=== PATIENT | male | born 1950 | race Caucasian/White ===

== ENCOUNTER 2017-10-21 12:01 | Inpatient (IN) | payer OTHER ==
[~2017-10-21] VITALS: Ht 185.4 cm; Wt 88.3 kg
--- NOTE | 2017-10-21 12:18 | ED MVC/FALL/TRAUMA COMPLAINT ---
History of Present Illness General Chief Complaint: Fall Stated Complaint: BIBA FALL HIP PAIN Source: patient Exam Limitations: no limitations Vital Signs & Intake/Output Vital Signs & Intake/Output Vital Signs Date Time Temp Pulse Resp B/P B/P Pulse O2 O2 Flow FiO2 Mean Ox Delivery Rate 10/24 0832 101 96/68 10/24 0707 99.7 101 18 96/68 93 Room Air 10/23 2132 98.1 111 18 100/60 93 10/23 1534 98.8 97 20 102/56 93 Room Air ED Intake and Output 10/24 0000 10/23 1200 Intake Total 240 800 Output Total 1275 Balance 240 -475 Intake, IV 800 Intake, Oral 240 Output, Urine 1275 Patient 90.293 kg Weight Weight Bed scale Measurement Method Allergies Coded Allergies: No Known Allergies (10/21/17) Reconcile Medications Ibuprofen 200 MG CAPSULE 2-3 CAP PO PRN PAIN/INFLAMMATION (Reported) Lisinopril 10 MG TABLET 1 TAB PO DAILY BP (Reported) Simvastatin (Simvastatin*) 40 MG TABLET 1 TAB PO QAM CHOLESTEROL (Reported) Tramadol HCl 50 MG TABLET 1 TAB PO TID PRN PAIN (Reported) Triage Note: RECEIVED 66 YO MALE BIBA S/P FALL ON LEFT HIP. PT C/O LEFT HIP AREA PAIN RADIATING TO PELVIS AND LOWER BACK. PT UNABLE TO WEIGHT BEAR. NO EXTERNAL ROTATION OR SHORTENING OF LEG NOTED. OCCURED ONE HOUR PHYSICIAN ASSISTANT. NO C/O LIGHTHEADEDNESS OR DIZZINESS PRIOR TO FALL. SLIP AND FALL. Triage Nurses Notes Reviewed? yes HPI: 66M PMH HTN, HLD, chronic back pain with multiple surgeries, presents with slip and fall, landing on his left hip. Did not hit his head, shoulder, or lose consciousness. Was not able to walk afterward or bear weight on his left leg. No symptoms prior, fall was purely mechanical. He complains of 10/10 left hip pain radiating down his lateral left leg. He denies back pain and is otherwise well. Past History Travel History Traveled to [place] past 21 day No Medical History Any Pertinent Medical History? see below for history Neurological: NONE EENT: NONE Cardiovascular: hypertension, hyperlipidemia Respiratory: NONE Gastrointestinal: NONE Hepatic: NONE Renal: NONE Musculoskeletal: NONE Psychiatric: NONE Endocrine: NONE Blood Disorders: NONE Cancer(s): NONE Surgical History Surgical History: laminectomy Psychosocial History What is your primary language [place] Tobacco Use: Never used Family History Hx Contributory? No Review of Systems Review of Systems Constitutional: Reports: no symptoms. Eyes: Reports: no symptoms. Ears, Nose, Throat, Mouth: Reports: no symptoms. Respiratory: Reports: no symptoms. Cardiovascular: Reports: no symptoms. Gastrointestinal/Abdominal: Reports: no symptoms. Genitourinary: Reports: no symptoms. Musculoskeletal: Reports: see HPI. Skin: Reports: no symptoms. Neurological/Psychological: Reports: no symptoms. All Other Systems: Reviewed and Negative Physical Exam Physical Exam General Appearance: well developed/nourished, mild distress Head: atraumatic, normal appearance Eyes: Bilateral: normal appearance. Ears, Nose, Throat, Mouth: hearing grossly normal, moist mucous membrane Neck: normal inspection, full range of motion Respiratory: normal breath sounds, chest non-tender, no respiratory distress Cardiovascular: regular rate/rhythm Gastrointestinal: soft, non-tender Back: normal inspection, normal range of motion, no vertebral tenderness Extremities: left hip and femur tenderness, unable to move leg due to pain, pulses and sensation intact Neurologic/Psych: awake, alert, oriented x 3, normal mood/affect Skin: intact, normal color, warm/dry Core Measures ACS in differential dx? No CVA/TIA Diagnosis No Sepsis Present: No Sepsis Focused Exam Completed? No Progress Differential Diagnosis: aoritic dissection, abd injury, C/T/L spine injury, ext injury, ICH, pelvis injury, pnemothorax, spinal cord injury Plan of Care: Orders Procedure Date/time Status CBC WITHOUT DIFFERENTIAL 10/24 0600 Complete Current Medications Sig/Keeley Start time Last Medication Dose Stop Time Status Admin Senna 187 MG AT BEDTIME 10/24 2199 AC (Senokot) Docusate Sodium 100 MG DAILY 10/24 1000 AC 10/24 (Colace) 1103 Apixaban 2.5 MG BID 10/23 2199 AC 10/24 (Eliquis) 0831 Morphine Sulfate 2 MG Q2-3 HRS NEEDED.. 10/22 (MORPHINE SULFATE) 1424 Oxycodone/ 2 TAB Q4P PRN 10/22 Acetaminophen 1103 (Percocet) Oxycodone/ 1 TAB Q4P PRN 10/22 Acetaminophen 2351 (Percocet) Atorvastatin Calcium 20 MG 1700 10/22 1700 AC 10/23 (Lipitor) 1622 Lisinopril 10 MG DAILY 10/22 1000 AC 10/23 (Prinivil) 0940 Acetaminophen 650 MG Q4P PRN 10/21 2230 AC 10/22 (Tylenol) 0832 Laboratory Tests 10/24/17 0712: CBC w Diff NO MAN DIFF REQ, RBC 3.27 L, MCV 95.3 H, MCH 32.1 H, MCHC 33.7, RDW 13.5, MPV 8.7, Gran % 73.4, Lymphocytes % 11.9 L, Monocytes % 13.5 H, Eosinophils % 0.9, Basophils % 0.3, Absolute Granulocytes 8.0 H, Absolute Lymphocytes 1.3, Absolute Monocytes 1.5 H, Absolute Eosinophils 0.1, Absolute Basophils 0 Diagnostic Imaging: Viewed by Me: CT Scan. Discussed w/RAD: CT Scan. Radiology Impression: PATIENT: MAYLIN TOBIAS PRESENT AGE: 66 PATIENT ACCOUNT NO: [id number] : 48 LOCATION: [facility] ORDERING PHYSICIAN: Trina Avilez MD SERVICE DATE: 10/21/17 EXAM TYPE : CAT - CT PELVIS WO IV CONTRAST EXAMINATION: CT PELVIS WITHOUT CONTRAST CLINICAL INFORMATION: Fall onto left hip with pain. Unable to bear weight. Rule out hip, pelvis, femur fracture. COMPARISON: None TECHNIQUE: Helical scanning was performed with submillimeter collimation through the pelvis. Sagittal and coronal multiplanar 2-D reconstructions were obtained. DLP: 708.23 mGy-cm FINDINGS: OSSEOUS STRUCTURES: There is an acute left femoral neck fracture with mild overriding of fracture fragments, slight superior subluxation of the distal fracture fragment and varus deformity of the hip. The left femoral head remains located within the acetabulum. No acetabular fracture is seen. Mild associated left hip joint effusion or hemorrhage and synovial thickening is seen. The bony pelvis and the right hip are intact. There are bilateral pars defects seen at L5 with minimal grade 1 anterolistheses of L5 on S1 and posterior unroofing of the disc. Associated degenerative facet arthropathy is noted at the lumbosacral junction. There is severe degenerative disc disease at L5-S1 as well as at L3- L4. Posterior subluxation of L3 on L4 is seen. PELVIS: The bladder is well distended and intact and unremarkable. Prostate gland and seminal vesicles are unremarkable. Included small and large bowel loops are decompressed and within normal limits except for a few scattered sigmoid colonic diverticula. No evidence of acute diverticulitis. Appendix and terminal ileum are unremarkable. There is a tiny fat-containing umbilical hernia. There is a tiny fat-containing left inguinal hernia. Mild atherosclerotic calcification of the aortoiliac vessels is seen. No significant pelvic or inguinal adenopathy is noted. IMPRESSION: 1. Mildly displaced left femoral neck fracture with varus angulation of the hip and associated small hemarthrosis. 2. Bony pelvis otherwise intact. 3. Severe degenerative disc disease at L3-L4 and L5-S1 with associated moderate facet arthropathy throughout the lower lumbar spine. 4. 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 DICTATED BY: Lian NINO,Leela Qiu DATE/TIME DICTATED:10/21/171441 BRAND INSPECTOR:TUAN DATE/TIME TRANSCRIBED:10/21/171441 Departure Departure Disposition: STILL A PATIENT Condition: Stable Clinical Impression Primary Impression: Closed left hip fracture Secondary Impressions: Fall Departure Forms: Customer Survey General Discharge Information Admission Note Spoke With: Amirah NINO,Raj Documentation of Exam: Documentation of any treatments & extenuating circumstances including Concerns Regarding Discharge (functional status, medication knowledge or non-compliance, living conditions, etc.) that warrant an admission rather than observation: FALL WITH LEFT HIP FRACTURE, UNABLE TO BEAR WEIGHT, WILL REQUIRE SURGICAL REPAIR, ADMIT TO INPATIENT SERVICE.
[2017-10-21] MEDS ORDERED: LISINOPRIL10 M1 PO (14:11)
[2017-10-21] MEDS ORDERED: SIMVASTATIN40 M1 PO (14:12)
[2017-10-21] MEDS ORDERED: TRAMADOL HCL50 M1 PO (14:12)
[2017-10-21] MEDS ORDERED: IBUPROFEN200 M3 PO (14:13)
[2017-10-21 14:57] LABS: ABSOLUTE BASOPHIL COUNT 0 /CUMM (0.0-0.2); ABSOLUTE EOSINOPHIL COUNT 0.1 /CUMM (0.0-0.7); ABSOLUTE LYMPH COUNT 0.9 /CUMM (1.2-3.4); ABSOLUTE MONOCYTE COUNT 0.5 /CUMM (0.10-0.60); BASOPHIL % 0 % (0.0-2.0); EOSINOPHIL % 0.9 % (0-5); GRANULOCYTE % 83.9 % (42.2-75.2); HEMATOCRIT 40.6 % (42-52); MEAN CORPUSCULAR HGB CONC 32.3 G/DL (33.0-37.0); MEAN PLATELET VOLUME 8.6 FL (7.4-10.4); PLATELET COUNT 232 /CUMM (130-400); RBC DISTRIBUTION WIDTH 13.4 % (11.5-14.5); RED BLOOD CELL CT 4.23 /CUMM (4.70-6.10); WHITE BLOOD CELL COUNT 9.6 /CUMM (4.8-10.8)
--- NOTE | 2017-10-21 14:57 | CT SCAN REPORT ---
EXAMINATION: CT PELVIS WITHOUT CONTRAST CLINICAL INFORMATION: Fall onto left hip with pain. Unable to bear weight. Rule out hip, pelvis, femur fracture. COMPARISON: None TECHNIQUE: Helical scanning was performed with submillimeter collimation through the pelvis. Sagittal and coronal multiplanar 2-D reconstructions were obtained. DLP: 708.23 mGy-cm FINDINGS: OSSEOUS STRUCTURES: There is an acute left femoral neck fracture with mild overriding of fracture fragments, slight superior subluxation of the distal fracture fragment and varus deformity of the hip. The left femoral head remains located within the acetabulum. No acetabular fracture is seen. Mild associated left hip joint effusion or hemorrhage and synovial thickening is seen. The bony pelvis and the right hip are intact. There are bilateral pars defects seen at L5 with minimal grade 1 anterolistheses of L5 on S1 and posterior unroofing of the disc. Associated degenerative facet arthropathy is noted at the lumbosacral junction. There is severe degenerative disc disease at L5-S1 as well as at L3-L4. Posterior subluxation of L3 on L4 is seen. PELVIS: The bladder is well distended and intact and unremarkable. Prostate gland and seminal vesicles are unremarkable. Included small and large bowel loops are decompressed and within normal limits except for a few scattered sigmoid colonic diverticula. No evidence of acute diverticulitis. Appendix and terminal ileum are unremarkable. There is a tiny fat-containing umbilical hernia. There is a tiny fat-containing left inguinal hernia. Mild atherosclerotic calcification of the aortoiliac vessels is seen. No significant pelvic or inguinal adenopathy is noted. IMPRESSION: 1. Mildly displaced left femoral neck fracture with varus angulation of the hip and associated small hemarthrosis. 2. Bony pelvis otherwise intact. 3. Severe degenerative disc disease at L3-L4 and L5-S1 with associated moderate facet arthropathy throughout the lower lumbar spine. 4. 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
[2017-10-21 15:03] LABS: PT 11.8 SEC (9.4-12.5); PTT 23 SEC (25-37)
--- NOTE | 2017-10-21 15:42 | Cons- Orthopedic ---
General Information and HPI Consulting Request Date of Consult: 10/21/17 Requested By: Hospitalist Reason for Consult: Left hip fracture Source of Information: patient History of Present Illness: Patient is a 66-year-old male with past medical history significant for hypertension, hyperlipidemia, and chronic back pain with multiple surgeries, who was brought in by ambulance to the [place] ED after a slip and fall on sidewalk, which resulted in him landing on his left hip. He recalls the event and denies any precipitating symptoms. He thinks that there were likely slippery patches on the sidewalk. Patient's only complaint is left hip pain radiating down his lateral left leg and there were no other injuries. X-rays in the ED revealed mildly displaced left femoral neck fracture. Orthopedic consultation is being requested for recommendations and intervention. Dr. Keita is the consulting surgeon. Allergies/Medications Allergies: Coded Allergies: No Known Allergies (10/21/17) Home Med List: Ibuprofen 200 MG CAPSULE 2-3 CAP PO PRN PAIN/INFLAMMATION (Reported) Lisinopril 10 MG TABLET 1 TAB PO DAILY BP (Reported) Simvastatin (Simvastatin*) 40 MG TABLET 1 TAB PO QAM CHOLESTEROL (Reported) Tramadol HCl 50 MG TABLET 1 TAB PO TID PRN PAIN (Reported) Past History Medical History Neurological: NONE EENT: NONE Cardiovascular: hypertension, hyperlipidemia Respiratory: NONE Gastrointestinal: NONE Hepatic: NONE Renal: NONE Musculoskeletal: NONE Psychiatric: NONE Endocrine: NONE Blood Disorders: NONE Cancer(s): NONE Surgical History Pertinent Surgical History: laminectomy Psychosocial History Where Do You Live? Home Who Do You Live With? spouse Functional Ability Ambulation: independent Exam & Diagnostic Data Vital Signs and I&O Vital Signs Date Time Temp Pulse Resp B/P B/P Pulse O2 O2 Flow FiO2 Mean Ox Delivery Rate 10/21 1533 98.7 78 18 117/74 98 Room Air 10/21 1208 96.8 72 18 110/70 96 Room Air Intake & Output 10/21 1600 10/21 0800 10/21 0000 10/20 1600 10/20 0800 10/20 0000 Intake Total 120 Output Total Balance 120 Intake, IV 0 Intake, Oral 120 Patient 195 lb Weight Weight Estimated Measurement Method Physical Exam: Gen.: Patient is awake and alert. No acute distress. Cardiac: Regular Pulmonary: Lungs are clear bilaterally. Extremities: The left lower extremity is slightly externally rotated. No other obvious deformities are appreciated. There is tenderness over the greater trochanter. Lower extremity sensation is intact bilaterally. Last 24 Hours of Labs: Laboratory Tests 10/21 1442 Chemistry Sodium (137 - 145 mmol/L) 137 Potassium (3.5 - 5.1 mmol/L) 4.6 Chloride (98 - 107 mmol/L) 102 Carbon Dioxide (22 - 30 mmol/L) 24 Anion Gap (5 - 16) 12 BUN (9 - 20 mg/dL) 19 Creatinine (0.7 - 1.2 mg/dL) 1.0 Estimated GFR (>60 ml/min) > 60 BUN/Creatinine Ratio (7 - 25 %) 19.0 Glucose (65 - 99 mg/dL) 110 H Calcium (8.4 - 10.2 mg/dL) 9.9 Total Bilirubin (0.2 - 1.3 mg/dL) 0.4 AST (17 - 59 U/L) 27 ALT (21 - 72 U/L) 38 Alkaline Phosphatase (< 127 U/L) 51 Total Protein (6.3 - 8.2 g/dL) 7.2 Albumin (3.5 - 5.0 g/dL) 4.2 Globulin (1.9 - 4.2 gm/dL) 3.0 Albumin/Globulin Ratio (1.1 - 2.2 %) 1.4 Coagulation PT (9.4 - 12.5 SEC) 11.8 INR (0.90 - 1.17) 1.08 APTT (25 - 37 SEC) 23 L Hematology CBC w Diff MAN DIFF ORDERED WBC (4.8 - 10.8 /CUMM) 9.6 RBC (4.70 - 6.10 /CUMM) 4.23 L Hgb (14.0 - 18.0 G/DL) 13.1 L Hct (42 - 52 %) 40.6 L MCV (80.0 - 94.0 FL) 96.0 H MCH (27.0 - 31.0 PG) 31.0 MCHC (33.0 - 37.0 G/DL) 32.3 L RDW (11.5 - 14.5 %) 13.4 Plt Count (130 - 400 /CUMM) 232 MPV (7.4 - 10.4 FL) 8.6 Gran % (42.2 - 75.2 %) 83.9 H Lymphocytes % (20.5 - 51.1 %) 9.8 L Monocytes % (1.7 - 9.3 %) 5.4 Eosinophils % (0 - 5 %) 0.9 Basophils % (0.0 - 2.0 %) 0 Absolute Granulocytes (1.4 - 6.5 /CUMM) 8.0 H Absolute Lymphocytes (1.2 - 3.4 /CUMM) 0.9 L Absolute Monocytes (0.10 - 0.60 /CUMM) 0.5 Absolute Eosinophils (0.0 - 0.7 /CUMM) 0.1 Absolute Basophils (0.0 - 0.2 /CUMM) 0 Platelet Estimate (ADEQUATE) VERIFIED BY SMEAR Normocytic RBCs VERIFIED Normochromic RBCs VERIFIED Imaging Results: Left hip x-ray revealed: there is a transverse fracture of the left femoral neck. Superior subluxation of the distal fracture fragment is seen, and mild varus angulation is noted. The left femoral head remains located within the acetabulum. Assessment/Plan Assessment/Plan Patient is a 66-year-old male with history of hypertension and hyperlipidemia, status post multiple back surgeries, who now sustained a left femoral neck fracture after a mechanical fall. -Plan is to admit the patient to the hospitalist service for medical clearance. -He will require surgical intervention via hemiarthroplasty versus total hip arthroplasty. -He can have a regular diet today and should be kept nothing by mouth after midnight for anticipated surgery tomorrow afternoon. -Please check EKG and type and screen. -Plan is for surgery tomorrow afternoon. Please notify the surgical team if clearance is not anticipated by that time. Consult Acknowledgment - Thank you for your consult request.
--- NOTE | 2017-10-21 16:23 | History & Physical ---
Michael Santos MD 10/21/17 1622: General Information and HPI MD Statement: I have seen and personally examined MAYLIN TOBIAS and documented this H& P. The patient is a 66 year old M who presented with a patient stated chief complaint of [s/p mechanical fall with L femur fx]. Source of Information: patient Exam Limitations: no limitations History of Present Illness: Patient is a 66-year-old male with a PMH of HTN, HLD, spinal stenosis with chronic back pain, alcoholism who presented to the ED after a mechanical fall L hip pain. Patient was walking outside when he slipped on ice and fell to his left knee. He reported 10/10 left hip pain. Afterwards he could not bear weight on the left leg. He had no associated chest pain, shortness of breath, dizziness, lightheadedness, loss of consciousness, numbness or tingling of the left leg. Allergies/Medications Allergies: Coded Allergies: No Known Allergies (10/21/17) Home Med list Ibuprofen 200 MG CAPSULE 2-3 CAP PO PRN PAIN/INFLAMMATION (Reported) Lisinopril 10 MG TABLET 1 TAB PO DAILY BP (Reported) Simvastatin (Simvastatin*) 40 MG TABLET 1 TAB PO QAM CHOLESTEROL (Reported) Tramadol HCl 50 MG TABLET 1 TAB PO TID PRN PAIN (Reported) Past History Travel History Traveled to [place] past 21 day No Medical History Neurological: NONE EENT: NONE Cardiovascular: hypertension, hyperlipidemia Respiratory: NONE Gastrointestinal: NONE Hepatic: NONE Renal: NONE Musculoskeletal: NONE Psychiatric: NONE Endocrine: NONE Blood Disorders: NONE Cancer(s): NONE Surgical History Surgical History: laminectomy Past Family/Social History Family History Relations & Conditions if any Relation not specified for: *No pertinent family history Psychosocial History Where do you live? Home Who Do You Live With? spouse Services at Home: None Primary Language: Wolof Smoking Status: Never Smoked ETOH Use: alcholic in AA, stopped drinking over 60 days ago Illicit Drug Use: denies illicit drug use Review of Systems Review of Systems Constitutional: Denies: chills, fever, weakness. EENTM: Denies: blurred vision, double vision, visual changes. Cardiovascular: Denies: chest pain, palpitations, syncope. Respiratory: Denies: cough, short of breath. GI: Reports: no symptoms. Genitourinary: Reports: no symptoms. Musculoskeletal: Reports: see HPI, joint pain. Skin: Reports: no symptoms. Neurological/Psychological: Denies: numbness, tingling. Exam & Diagnostic Data Last 24 Hrs of Vital Signs/I&O Vital Signs Date Time Temp Pulse Resp B/P B/P Pulse O2 O2 Flow FiO2 Mean Ox Delivery Rate 10/21 2158 98.4 102 19 122/76 92 Room Air 10/21 1822 99.1 95 20 140/82 95 Room Air 10/21 1736 98.4 89 18 128/76 98 Room Air 10/21 1610 Room Air 10/21 1533 98.7 78 18 117/74 98 Room Air 10/21 1208 96.8 72 18 110/70 96 Room Air Intake & Output 10/21 1600 10/21 0800 10/21 0000 Intake Total 120 Output Total Balance 120 Intake, IV 0 Intake, Oral 120 Patient 195 lb Weight Weight Estimated Measurement Method Physical Exam General Appearance Alert, Oriented X3, Cooperative, Mild Distress Skin Temp/Moisture Exam: Warm/Dry Sepsis Skin Exam (color): Normal for Ethnicity HEENT Atraumatic Cardiovascular Regular Rate, Normal S1, Normal S2 Lungs Clear to Auscultation, Normal Air Movement Abdomen Normal Bowel Sounds, Soft, No Tenderness Neurological Normal Speech, Normal Tone, Sensation Intact, Cranial Nerves 3-12 NL Extremities No Clubbing, No Cyanosis, No Edema, L leg externally rotated, pulses normal, sensation intact, pain with active and passive ROM Last 24 Hrs of Labs/[place]: Laboratory Tests 10/21/17 1442: Anion Gap 12, Estimated GFR > 60, BUN/Creatinine Ratio 19.0, Glucose 110 H, Calcium 9.9, Total Bilirubin 0.4, AST 27, ALT 38, Alkaline Phosphatase 51, Total Protein 7.2, Albumin 4.2, Globulin 3.0, Albumin/Globulin Ratio 1.4, PT 11.8, INR 1.08, APTT 23 L, CBC w Diff MAN DIFF ORDERED, RBC 4.23 L, MCV 96.0 H, MCH 31.0, MCHC 32.3 L, RDW 13.4, MPV 8.6, Gran % 83.9 H, Lymphocytes % 9.8 L, Monocytes % 5.4, Eosinophils % 0.9, Basophils % 0, Absolute Granulocytes 8.0 H, Absolute Lymphocytes 0.9 L, Absolute Monocytes 0.5, Absolute Eosinophils 0.1, Absolute Basophils 0, Platelet Estimate VERIFIED BY SMEAR, Normocytic RBCs VERIFIED, Normochromic RBCs VERIFIED Diagnostic Data EKG Results sinus tachycardia, HR 115, QTc 425, normal axis Other Results Pelvis CT 1. Mildly displaced left femoral neck fracture with varus angulation of the hip and associated small hemarthrosis. 2. Bony pelvis otherwise intact. 3. Severe degenerative disc disease at L3-L4 and L5-S1 with associated moderate facet arthropathy throughout the lower lumbar spine. 4. 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 Hip XR Left femoral neck fracture. Assessment/Plan Assessment: Patient is a 66-year-old male with a PMH of HTN, HLD, spinal stenosis with chronic back pain, alcoholism who presented to the ED after a mechanical fall L hip pain. Associated symptoms suggestive of syncope. Patient found to have left femoral neck fracture. Problem list #Closed left hip fracture #Chronic medical problems including HTN, HLD, alcoholism(in recovery) Plan -Admit to general medicine floor -Nothing by mouth at midnight for this orthopedic surgery -Adequate pain control -RCRI 0 -Continue home medications Diet: Heart healthy, nothing by mouth at midnight DVT prophylaxis: SC heparin, ALPS CODE STATUS: Full Code As Ranked By This Provider Problem List: 1. Fall 2. Closed left hip fracture Core Measures/Misc (04/30) Acute Coronary Syndrome ACS Diagnosis: No Congestive Heart Failure Congestive Heart Failure Diagnosis No Cerebrovascular Accident CVA/TIA Diagnosis: No VTE (View Protocol) VTE Risk Factors Immobility No Mechanical VTE Prophylaxis d/t N/A MechProphylax Ordered No VTE Pharm Prophylaxis d/t NA PharmProphylax ordered Sepsis (View protocol) Sepsis Present: No Raj Macario 10/21/17 1627: Attending MD Review Statement Attending Statement Attending MD Statement: examined this patient, discuss w/resident/PA/CONTROLLED AREA CHECKER, agreed w/resident/PA/CONTROLLED AREA CHECKER, discussed with family, reviewed EMR data (avail), discussed with nursing, discussed with case mgmt, reviewed images, amended to note Attending Assessment/Plan: 66 o/m with pmh of hypertension of lisinopril and statin came with mechanical fall, no LOC, no chest pain, no dizziness, no fever. Patient suffered left hip fracture. Patient denies chest pain and can easily walk without dyspnea. Patient is low risk for surgery. Orthopedics consulted which recommend repair. Plan for OR in AM, NPo past MN. Patient is medically stable for the procedure and can be taken for surgery now. gi/dvt prophyalxis full code. Inez Vanegas MD 10/22/17 0007: Resident Review Statement Resident Statement: examined this patient, discussed with help desk intern, agreed with help desk intern Other Findings: Patient is a 66-year-old male with a PMH of HTN, HLD, spinal stenosis with chronic back pain, and alcoholism who presented to the ED after a mechanical fall resulting in left hip pain and inability to bear weight on the Left leg. He is currently attending AA meetings, his last drink was 60 days ago and he was had multiple detoxes in the past but no seizures, DTs or ICU admissions for alcohol related issues. Assessment 1. Left hip fracture 2. HTN, HLD 3. Chronic Alcholism in treatment 4. Chronic back pain Plan Admit to general medicine floor Orthopedic consult Keep nothing by mouth at midnight for possible surgery in a.m. Adequate pain control CIWA monitoring Resume his important home medication Subcutaneous heparin for DVT prophylaxis Heart healthy diet Follow attending recommendations Full code
--- NOTE | 2017-10-21 16:47 | RADIOLOGY REPORT ---
EXAMINATION: XR HIP, LEFT CLINICAL INFORMATION: Had hip fracture confirmed by CT. Plain films needed. COMPARISON: CT scan of the pelvis dated 10/21/2017. TECHNIQUE: Two views of the left hip performed on 3 images. FINDINGS: Crosstable lateral views are essentially nondiagnostic in region of the known fracture. On the frontal view, as seen on the CT scan, there is a transverse fracture of the left femoral neck. Superior subluxation of the distal fracture fragment is seen, and mild varus angulation is noted. The left femoral head remains located within the acetabulum. Included portions of the bony pelvis are otherwise unremarkable. IMPRESSION: Left femoral neck fracture.
[2017-10-21 18:22] VITALS: BP 140/82
[2017-10-21 21:58] VITALS: BP 122/76
[2017-10-22 06:55] VITALS: BP 122/74
--- NOTE | 2017-10-22 08:20 | PN- Housestaff ---
Tom NINO,Michael 10/22/17818: Subjective Follow-up For: mechanical fall with L femur fx Subjective: Patient seen and examined bedside. He is resting comfortably. No acute events overnight. He states that his pain is relatively well controlled. He currently has 5/10 left hip pain, exacerbated with motion. He denies any nausea, vomiting , fever, chills, chest pain, numbness or tingling of the left leg. Review of Systems Constitutional: Reports: no symptoms. EENTM: Reports: no symptoms. Cardiovascular: Reports: no symptoms. Respiratory: Reports: no symptoms. Gastrointestinal: Reports: no symptoms. Genitourinary: Reports: no symptoms. Musculoskeletal: Reports: see HPI, joint pain. Skin: Reports: no symptoms. Objective Last 24 Hrs of Vital Signs/I&O Vital Signs Date Time Temp Pulse Resp B/P B/P Pulse O2 O2 Flow FiO2 Mean Ox Delivery Rate 10/22 0655 98.6 96 20 122/74 93 10/21 2158 98.4 102 19 122/76 92 Room Air 10/21 1822 99.1 95 20 140/82 95 Room Air 10/21 1736 98.4 89 18 128/76 98 Room Air 10/21 1610 Room Air 10/21 1533 98.7 78 18 117/74 98 Room Air 10/21 1208 96.8 72 18 110/70 96 Room Air Intake & Output 10/22 1600 10/22 0800 10/22 0000 Intake Total 700 480 Output Total 250 600 Balance 450 -120 Intake, IV 700 Intake, Oral 0 480 Output, Urine 250 600 Patient 201 lb 196 lb Weight Weight Bed scale Reported by Patient Measurement Method Physical Exam General Appearance: Alert, Oriented X3, Cooperative, No Acute Distress Skin Temp/Moisture Exam: Warm/Dry Cardiovascular: Regular Rate, Normal S1, Normal S2 Lungs: Clear to Auscultation, Normal Air Movement Abdomen: Normal Bowel Sounds, Soft, Mild TTP of the LLQ Neurological: Normal Speech, Normal Tone, Sensation Intact Extremities: Pain with active and passive ROM of the LLE, no overlying skin changes, sensation intact and good distal pulses Current Medications: Current Medications Sig/Keeley Start time Last Medication Dose Route Stop Time Status Admin Acetaminophen 650 MG Q4P PRN 10/21 2230 AC PO Atorvastatin Calcium 20 MG 1700 10/22 1700 AC PO Heparin Sodium 5,000 UNIT Q8 10/21 2312 AC (Porcine) SC Hydromorphone HCl 0.6 MG Q4P PRN 10/21 1745 AC 10/21 IV 2006 Influenza Virus 0.5 ML ONCE ONE 10/21 1900 DC Vaccine IM 10/21 190 Ketorolac 30 MG .STK-MED ONE 10/21 2237 DC Tromethamine IM 10/21 2237 Ketorolac 15 MG Q6-PRN PRN 10/21 2229 AC 10/21 Tromethamine IV 223 Lisinopril 10 MG DAILY 10/22 1000 AC PO Morphine Sulfate 2 MG Q4P PRN 10/21 2230 AC 10/22 IV 0422 Morphine Sulfate 0 .STK-MED ONE 10/21 1749 DC .ROUTE Morphine Sulfate 4 MG ONCE ONE 10/21 1745 DC 10/21 IV 10/21 1746 1816 Morphine Sulfate 0 .STK-MED ONE 10/21 1610 DC .ROUTE Morphine Sulfate 4 MG ONCE ONE 10/21 1545 DC 10/21 IV 10/21 1546 1609 Morphine Sulfate 0 .STK-MED ONE 10/21 1528 DC .ROUTE Morphine Sulfate 4 MG ONCE ONE 10/21 1345 DC 10/21 IV 10/21 1346 1526 Oxycodone/ 0 .STK-MED ONE 10/21 1255 DC Acetaminophen PO Oxycodone/ 1 TAB ONCE ONE 10/21 1230 DC 10/21 Acetaminophen PO 10/21 1231 1248 Oxycodone/ 1 TAB ONCE ONE 10/21 1230 CAN Acetaminophen PO 10/21 1231 Sodium Chloride 1,000 ML .Q10H 10/21 2345 AC 10/22 IV 0017 Last 24 Hrs of Lab/Dawood Results Last 24 Hrs of Labs/Mics: Laboratory Tests 10/22/17 0728: Sodium Pending, Potassium Pending, Chloride Pending, Carbon Dioxide Pending, Anion Gap Pending, BUN Pending, Creatinine Pending, BUN/Creatinine Ratio Pending , CBC w Diff Pending, WBC Pending, RBC Pending, Hgb Pending, Hct Pending, MCV Pending, MCH Pending, MCHC Pending, RDW Pending, Plt Count Pending, MPV Pending 10/21/17 1442: Anion Gap 12, Estimated GFR > 60, BUN/Creatinine Ratio 19.0, Glucose 110 H, Calcium 9.9, Total Bilirubin 0.4, AST 27, ALT 38, Alkaline Phosphatase 51, Total Protein 7.2, Albumin 4.2, Globulin 3.0, Albumin/Globulin Ratio 1.4, PT 11.8, INR 1.08, APTT 23 L, CBC w Diff MAN DIFF ORDERED, RBC 4.23 L, MCV 96.0 H, MCH 31.0, MCHC 32.3 L, RDW 13.4, MPV 8.6, Gran % 83.9 H, Lymphocytes % 9.8 L, Monocytes % 5.4, Eosinophils % 0.9, Basophils % 0, Absolute Granulocytes 8.0 H, Absolute Lymphocytes 0.9 L, Absolute Monocytes 0.5, Absolute Eosinophils 0.1, Absolute Basophils 0, Platelet Estimate VERIFIED BY SMEAR, Normocytic RBCs VERIFIED, Normochromic RBCs VERIFIED Assessment/Plan Assessment: Patient is a 66-year-old male with a PMH of HTN, HLD, spinal stenosis with chronic back pain, alcoholism who presented to the ED after a mechanical fall L hip pain. Associated symptoms suggestive of syncope. Patient found to have left femoral neck fracture. #Mildly displaced left femoral neck fracture Plan to go to OR tomorrow. -Patient is medically cleared, with low cardiac risk (RCRI 0) for the anticipated surgery this afternoon -Nothing by mouth until surgery -Continue adequate pain management - PT consult in AM after ortho recommendations for weightbearing status #Chronic medical problems including HTN, HLD, alcoholism(in recovery) -Continue home medications Diet: NPO prior to surgery, heart healthy diet DVT prophylaxis: subcutaneous heparin, ALPS Code status: Full code Problem List: 1. Fall 2. Closed left hip fracture Pain Ratin Pain Location: L hip Pain Goal: Remain pain free Pain Plan: pain pathway Tomorrow's Labs & Rationales: cbc Raj Macario 10/22/17 1053: Attending MD Review Statement Attending Statement Attending MD Statement: examined this patient, discuss w/resident/PA/BOTTOM POLISHER, agreed w/resident/PA/BOTTOM POLISHER, discussed with family, reviewed EMR data (avail), discussed with nursing, discussed with case mgmt, reviewed images, amended to note Attending Assessment/Plan: 66 o/m with pmh of hypertension of lisinopril and statin came with mechanical fall, no LOC, no chest pain, no dizziness, no fever. Patient suffered left hip fracture. Patient denies chest pain and can easily walk without dyspnea. Patient is low risk for surgery. Orthopedics consulted which recommend repair. Plan for OR today. Patient is medically stable for the procedure and can be taken for surgery now. gi/dvt prophyalxis full code.
[2017-10-22 08:52] LABS: ABSOLUTE BASOPHIL COUNT 0 /CUMM (0.0-0.2); ABSOLUTE EOSINOPHIL COUNT 0.2 /CUMM (0.0-0.7); ABSOLUTE GRANULOCYTE CT 4.7 /CUMM (1.4-6.5); ABSOLUTE LYMPH COUNT 1.7 /CUMM (1.2-3.4); ABSOLUTE MONOCYTE COUNT 0.7 /CUMM (0.10-0.60); BASOPHIL % 0.4 % (0.0-2.0); EOSINOPHIL % 3.2 % (0-5); GRANULOCYTE % 64.4 % (42.2-75.2); MEAN CORPUSCULAR HGB 32.1 PG (27.0-31.0); MEAN CORPUSCULAR HGB CONC 33.8 G/DL (33.0-37.0); MEAN CORPUSCULAR VOLUME 94.9 FL (80.0-94.0); MEAN PLATELET VOLUME 8.7 FL (7.4-10.4); PLATELET COUNT 207 /CUMM (130-400); RBC DISTRIBUTION WIDTH 13.6 % (11.5-14.5); RED BLOOD CELL CT 3.62 /CUMM (4.70-6.10); WHITE BLOOD CELL COUNT 7.3 /CUMM (4.8-10.8)
[2017-10-22 09:13] LABS: HEMATOCRIT 34.4 % (42-52)
--- NOTE | 2017-10-22 10:27 | PN- Orthopedic ---
Surgical Brief Attending Note Brief Attending Note: This patient is a 66-year-old man who was admitted yesterday evening following a fall injuring his left hip. He was found to have a displaced femoral neck hip fracture. Patient was admitted to medicine for medical clearance. Patient denied any other injuries. I reviewed the CAT scan that the emergency room ordered. I requested an x-ray. I reviewed the films. Patient does have a displaced femoral neck hip fracture and we discussed the option of hemiarthroplasty versus total hip arthroplasty. We discussed the risks benefits and expectations of both options. Patient wanted to proceed with the hemiarthroplasty at this point. He understands the possibility of wearing of the acetabular cartilage and the possibility of need to return to the operating room to do the acetabular side in the future. He wishes to proceed with a hemiarthroplasty. Risks benefits and expectations of the procedure were discussed which included but were not limited to persistent hip pain, need for subsequent surgery, infection, DVT, injury to blood vessel or nerve, leg length discrepancy, dislocation/instability and anesthesia risks. He signed consent. We will proceed with the surgical procedure later today. We are awaiting final medical clearance at the time of my evaluation but there was no indication that the clearance would not be obtained. Operating room is aware and the appropriate reps were contacted.
[2017-10-22 14:35] VITALS: BP 122/78
--- NOTE | 2017-10-22 19:57 | Operative Report ---
Operative/Inv Procedure Report Surgery Date: 10/22/17 Name of Procedure: Left hip hemiarthroplasty Pre-Operative Diagnosis: Displaced left hip femoral neck fracture Post-Operative Diagnosis: Same Estimated Blood Loss: 50ml to 100ml Surgeon/Intel Analyst: Aakash Keita MD, JESSEE Chandler Anesthesia: general endotracheal tube Implants: Accolade 2 femoral stem 127 neck angle, neutral standard 0 neck adapter and 51 unipolar femoral head Drains: None Specimens: Femoral head Complications: None Condition: Stable Operative Indication: Patient is a 66-year-old man with a history of a fall injuring his left hip. He was found to have a displaced femoral neck hip fracture. He was admitted to medical service for medical evaluation and clearance. I recommended arthroplasty of the left hip. We discussed hemiarthroplasty versus total hip arthroplasty. Patient wished to proceed with a partial replacement after discussing risks benefits and expectations and limitations of both procedures. He understands that there is a possibility that he could have acetabular wear in the future. Risks benefits and expectations included but were not limited to persistent hip pain, need for substance surgery, infection, DVT, injury to blood vessel or nerve, anesthesia risks, leg length discrepancy, instability/ dislocation. Operative/Procedure Note Note: Patient was brought to the operating room and transferred to the operating table. Once under appropriate anesthesia the patient was placed into a right lateral decubitus position with left side up. All bony prominences were well- padded. Left lower extremity was prepped and draped in standard fashion. Preoperative IV antibiotics were given prophylactically. A standard lateral incision was made for anticipated superior approach to the hip. Incision was taken down sharply to the underlying fascia. Fascia of the gluteus rainer was incised in retractors were placed. Hip was internally rotated. The piriformis was identified and reflected posteriorly for later repair. Retractors were placed in the interval between the gluteus and minimus tendon and superior capsule. A T-incision was made in the capsule and both flaps were tagged and reflected posteriorly for later repair. It was a high subcapital hip fracture. Therefore a femoral neck cut was made to facilitate removal of the femoral head from the acetabular fossa. Saw was used. Femoral head was removed and sized to a size 51. I use a size 51 trial unipolar head and I was satisfied with the fit in the acetabular fossa. I then exposed the proximal femur. Retractors were placed. Box osteotome was used to lateralize my insertion site. tow truck dispatcher for the canal finder was used followed by broaching with this for the Accolade to stem. I broached up to a size 5. This filled the proximal canal. I did a reduction with a +0 adapter and the 51 femoral head. Construct was out to length. I then removed the broach copiously irrigated the canal and then placed the definitive size 5 Accolade to femoral stem with excellent scratch fit and fill. I dried the trunnion of the 127 neck angle femoral stem and placed the + 0 adapter and 51 unipolar femoral head in place and impacted in position. Locking mechanism was confirmed. Hip was then reduced. I was satisfied with the hindu of leg length. The hip was stable in full extension obtained and accommodation of extension and external rotation did not result in any anterior instability or impingement. Flexion to greater than 90 internal rotation and adduction did not result in any posterior instability. Again I confirmed leg length hindu. I was satisfied with this. I then irrigated. Irrigation followed every level of closure. The capsule was repaired as was the piriformis. Fascia was closed with interrupted #1 Vicryl suture. Subcutaneous tissues closed in 2 layers with 2-0 Vicryl and skin was closed with hernesto. Appropriate just his were applied and patient was awakened and taken to recovery room in good condition. No intraoperative complications. Blood loss was 100 mL Discharge Disposition: PACU
[2017-10-22 20:30] VITALS: BP 136/80
--- NOTE | 2017-10-22 20:35 | RADIOLOGY REPORT ---
EXAMINATION: XR HIP, LEFT CLINICAL INFORMATION: Fracture, arthroplasty COMPARISON: 10/21/2017 x-ray TECHNIQUE: Single view of the left hip. FINDINGS: The patient is status post total left hip arthroplasty. The alignment of the femoral and acetabular components of the prosthesis is normal. Surrounding soft tissue edema noted. Surgical hernesto along the lateral side of the pelvis. IMPRESSION: Status post total left hip arthroplasty.
[2017-10-23 00:45] VITALS: BP 126/74
[2017-10-23 05:16] VITALS: BP 114/72
--- NOTE | 2017-10-23 07:56 | PN- Orthopedic ---
See Addendum Subjective Subjective: Patient with moderate pain left hip, no other complaints, no acute events overnight Objective Vital Signs and I&Os Vital Signs Date Time Temp Pulse Resp B/P B/P Pulse O2 O2 Flow FiO2 Mean Ox Delivery Rate 10/23 0516 98.2 95 20 114/72 96 10/23 0045 99.5 108 20 126/74 95 10/22 2030 98.8 101 16 136/80 96 Nasal 2.0L Cannula 10/22 1435 98.1 91 20 122/78 95 Room Air Intake & Output 10/23 0800 10/23 0000 10/22 1600 10/22 0800 10/22 0000 10/21 1600 Intake Total 800 300 830 700 480 120 Output Total 1275 400 250 600 Balance -475 300 430 450 -120 120 Intake, IV 800 300 800 700 0 Intake, Oral 30 0 480 120 Output, Urine 1275 400 250 600 Patient 199 lb 201 lb 196 lb 195 lb Weight Weight Bed scale Bed scale Reported by Patient Estimated Measurement Method Physical Exam: Well-developed well-nourished no apparent distress. HEENT: Atraumatic, extraocular motion intact Neck: Supple, no lymphadenopathy Respiratory: No respiratory distress Extremities: No edema Left lower extremity hip dressing in place, Dressing clean dry and intact Mild thigh swelling No signs of infection. Abduction pillow in place No shortening or rotation Hip range of motion is limited and without unexpected pain Neurovascularly intact distally Bilateral calves are supple, nontender. Neuro: Alert and oriented x3 Psych: Mood affect normal, normal memory normal judgment. Skin: Warm and dry, no rash on exposed skin Results Last 48 Hours of Labs: Laboratory Tests 10/23 10/22 0724 0728 Chemistry Sodium (137 - 145 mmol/L) Pending 138 Potassium (3.5 - 5.1 mmol/L) Pending 3.9 Chloride (98 - 107 mmol/L) Pending 105 Carbon Dioxide (22 - 30 mmol/L) Pending 24 Anion Gap (5 - 16) Pending 9 BUN (9 - 20 mg/dL) Pending 21 H Creatinine (0.7 - 1.2 mg/dL) Pending 1.1 Estimated GFR (>60 ml/min) > 60 BUN/Creatinine Ratio (7 - 25 %) Pending 19.1 Hematology CBC w Diff Pending NO MAN DIFF REQ WBC (4.8 - 10.8 /CUMM) Pending 7.3 RBC (4.70 - 6.10 /CUMM) Pending 3.62 L Hgb (14.0 - 18.0 G/DL) Pending 11.6 L Hct (42 - 52 %) Pending 34.4 L MCV (80.0 - 94.0 FL) Pending 94.9 H MCH (27.0 - 31.0 PG) Pending 32.1 H MCHC (33.0 - 37.0 G/DL) Pending 33.8 RDW (11.5 - 14.5 %) Pending 13.6 Plt Count (130 - 400 /CUMM) Pending 207 MPV (7.4 - 10.4 FL) Pending 8.7 Gran % (42.2 - 75.2 %) 64.4 Lymphocytes % (20.5 - 51.1 %) 22.6 Monocytes % (1.7 - 9.3 %) 9.4 H Eosinophils % (0 - 5 %) 3.2 Basophils % (0.0 - 2.0 %) 0.4 Absolute Granulocytes (1.4 - 6.5 /CUMM) 4.7 Absolute Lymphocytes (1.2 - 3.4 /CUMM) 1.7 Absolute Monocytes (0.10 - 0.60 /CUMM) 0.7 H Absolute Eosinophils (0.0 - 0.7 /CUMM) 0.2 Absolute Basophils (0.0 - 0.2 /CUMM) 0 03/10 1442 Chemistry Sodium (137 - 145 mmol/L) 137 Potassium (3.5 - 5.1 mmol/L) 4.6 Chloride (98 - 107 mmol/L) 102 Carbon Dioxide (22 - 30 mmol/L) 24 Anion Gap (5 - 16) 12 BUN (9 - 20 mg/dL) 19 Creatinine (0.7 - 1.2 mg/dL) 1.0 Estimated GFR (>60 ml/min) > 60 BUN/Creatinine Ratio (7 - 25 %) 19.0 Glucose (65 - 99 mg/dL) 110 H Calcium (8.4 - 10.2 mg/dL) 9.9 Total Bilirubin (0.2 - 1.3 mg/dL) 0.4 AST (17 - 59 U/L) 27 ALT (21 - 72 U/L) 38 Alkaline Phosphatase (< 127 U/L) 51 Total Protein (6.3 - 8.2 g/dL) 7.2 Albumin (3.5 - 5.0 g/dL) 4.2 Globulin (1.9 - 4.2 gm/dL) 3.0 Albumin/Globulin Ratio (1.1 - 2.2 %) 1.4 Coagulation PT (9.4 - 12.5 SEC) 11.8 INR (0.90 - 1.17) 1.08 APTT (25 - 37 SEC) 23 L Hematology CBC w Diff MAN DIFF ORDERED WBC (4.8 - 10.8 /CUMM) 9.6 RBC (4.70 - 6.10 /CUMM) 4.23 L Hgb (14.0 - 18.0 G/DL) 13.1 L Hct (42 - 52 %) 40.6 L MCV (80.0 - 94.0 FL) 96.0 H MCH (27.0 - 31.0 PG) 31.0 MCHC (33.0 - 37.0 G/DL) 32.3 L RDW (11.5 - 14.5 %) 13.4 Plt Count (130 - 400 /CUMM) 232 MPV (7.4 - 10.4 FL) 8.6 Gran % (42.2 - 75.2 %) 83.9 H Lymphocytes % (20.5 - 51.1 %) 9.8 L Monocytes % (1.7 - 9.3 %) 5.4 Eosinophils % (0 - 5 %) 0.9 Basophils % (0.0 - 2.0 %) 0 Absolute Granulocytes (1.4 - 6.5 /CUMM) 8.0 H Absolute Lymphocytes (1.2 - 3.4 /CUMM) 0.9 L Absolute Monocytes (0.10 - 0.60 /CUMM) 0.5 Absolute Eosinophils (0.0 - 0.7 /CUMM) 0.1 Absolute Basophils (0.0 - 0.2 /CUMM) 0 Platelet Estimate (ADEQUATE) VERIFIED BY SMEAR Normocytic RBCs VERIFIED Normochromic RBCs VERIFIED Assessment/Plan Assessment/Plan Postop day 1 status post left hip hemiarthroplasty secondary to left femoral neck fracture Perioperative antibiotics. Pain medication as needed. Out of bed Physical therapy, weightbearing as tolerated Regular diet Follow a.m. labs Start Eliquis Monday evening for DVT prophylaxis Abduction pillow while in bed ALPS for DVT prophylaxis Regular home meds Dressing change postop day 2 will follow
[2017-10-23 08:20] LABS: ABSOLUTE BASOPHIL COUNT 0 /CUMM (0.0-0.2); ABSOLUTE EOSINOPHIL COUNT 0 /CUMM (0.0-0.7); ABSOLUTE GRANULOCYTE CT 7.7 /CUMM (1.4-6.5); ABSOLUTE LYMPH COUNT 1.2 /CUMM (1.2-3.4); ABSOLUTE MONOCYTE COUNT 1.1 /CUMM (0.10-0.60); BASOPHIL % 0.2 % (0.0-2.0); EOSINOPHIL % 0 % (0-5); HEMATOCRIT 33.2 % (42-52); MEAN CORPUSCULAR HGB 31.3 PG (27.0-31.0); MEAN CORPUSCULAR HGB CONC 32.8 G/DL (33.0-37.0); MEAN CORPUSCULAR VOLUME 95.4 FL (80.0-94.0); MEAN PLATELET VOLUME 8.5 FL (7.4-10.4); PLATELET COUNT 212 /CUMM (130-400); RBC DISTRIBUTION WIDTH 13.2 % (11.5-14.5); RED BLOOD CELL CT 3.48 /CUMM (4.70-6.10)
--- NOTE | 2017-10-23 08:39 | PN- Housestaff ---
Tom NINO,Michael 10/23/17 0839: Subjective Follow-up For: L femur fracture s/p hemiarthroplasty POD#1 Subjective: Patient was seen and examined at bedside. He was resting comfortably. He had no acute events overnight. He tolerated his procedure yesterday well. He is complaining of mild left hip pain. He is tolerating a regular diet and has no other complaints. He denies any chest pain, shortness of breath, nausea, vomiting, fever, chills, tingling or numbness of the left leg Review of Systems Constitutional: Reports: no symptoms. EENTM: Reports: no symptoms. Cardiovascular: Reports: no symptoms. Respiratory: Reports: no symptoms. Gastrointestinal: Reports: no symptoms. Genitourinary: Reports: no symptoms. Musculoskeletal: Reports: see HPI, joint pain. Skin: Reports: no symptoms. Objective Last 24 Hrs of Vital Signs/I&O Vital Signs Date Time Temp Pulse Resp B/P B/P Pulse O2 O2 Flow FiO2 Mean Ox Delivery Rate 10/23 0516 98.2 95 20 114/72 96 10/23 0045 99.5 108 20 126/74 95 10/22 2030 98.8 101 16 136/80 96 Nasal 2.0L Cannula 10/22 1435 98.1 91 20 122/78 95 Room Air Intake & Output 10/23 1600 10/23 0800 10/23 0000 Intake Total 800 1130 Output Total 1275 400 Balance -475 730 Intake, IV 800 1100 Intake, Oral 30 Output, Urine 1275 400 Patient 199 lb Weight Weight Bed scale Measurement Method Physical Exam General Appearance: Alert, Oriented X3, Cooperative, No Acute Distress Skin Temp/Moisture Exam: Warm/Dry Cardiovascular: Regular Rate, Normal S1, Normal S2 Lungs: Clear to Auscultation, Normal Air Movement Abdomen: Normal Bowel Sounds, Soft, No Tenderness Neurological: Normal Speech, Normal Tone, Sensation Intact Extremities: surgical dressing on L lateral proximal thigh, dressing is clean dry and intact, TTP around the surgical site, no hematoma Current Medications: Current Medications Sig/Keeley Start time Last Medication Dose Route Stop Time Status Admin Acetaminophen 1,000 MG .STK-MED ONE 10/22 1628 DC IV 10/22 1629 Acetaminophen 650 MG Q4P PRN 10/21 2230 AC 10/22 PO 0832 Apixaban 2.5 MG BID 10/23 2200 AC PO Atorvastatin Calcium 20 MG 1700 10/22 1700 AC 10/22 PO 2047 Cefazolin Sodium 1,000 MG IQ8 10/23 0000 DC 10/23 IV 10/23 0801 0755 Dextrose/Sodium 1,000 ML Q10H 10/22 1945 AC 10/23 Chloride IV 0750 Fentanyl Citrate 250 MCG .STK-MED ONE 10/22 1628 DC IM 10/22 1629 Heparin Sodium 5,000 UNIT Q8 10/21 2312 DC (Porcine) SC Hydromorphone HCl 0.6 MG Q4P PRN 10/21 1745 DC 10/22 IV 1422 Ketorolac 15 MG Q6-PRN PRN 10/21 2230 DC 10/21 Tromethamine IV 2239 Lisinopril 10 MG DAILY 10/22 1000 AC PO Midazolam HCl 2 MG .STK-MED ONE 10/22 1628 DC IM 10/22 1629 Morphine Sulfate 2 MG Q2-3 HRS NEEDED.. 10/22 1945 AC 10/23 IV 0749 Morphine Sulfate 2 MG Q4P PRN 10/21 2230 DC 10/22 IV 1227 Oxycodone/ 2 TAB Q4P PRN 10/22 194 AC Acetaminophen PO Oxycodone/ 1 TAB Q4P PRN 10/22 1945 AC Acetaminophen PO Sodium Chloride 1,000 ML .Q10H 10/21 2345 DC 10/22 IV 1228 Last 24 Hrs of Lab/Dawood Results Last 24 Hrs of Labs/Mics: Laboratory Tests 10/23/17 0724: Sodium Pending, Potassium Pending, Chloride Pending, Carbon Dioxide Pending, Anion Gap Pending, BUN Pending, Creatinine Pending, BUN/Creatinine Ratio Pending , CBC w Diff NO MAN DIFF REQ, RBC 3.48 L, MCV 95.4 H, MCH 31.3 H, MCHC 32.8 L, RDW 13.2, MPV 8.5, Gran % 77.0 H, Lymphocytes % 11.8 L, Monocytes % 11.0 H , Eosinophils % 0, Basophils % 0.2, Absolute Granulocytes 7.7 H, Absolute Lymphocytes 1.2, Absolute Monocytes 1.1 H, Absolute Eosinophils 0, Absolute Basophils 0 Assessment/Plan Assessment: Patient is a 66-year-old male with a PMH of HTN, HLD, spinal stenosis with chronic back pain, alcoholism who presented to the ED after a mechanical fall L hip pain. Associated symptoms suggestive of syncope. Patient found to have left femoral neck fracture. #Mildly displaced left femoral neck fracture Status post hemiarthroplasty POD #1. Tolerated procedure well. Pain is overall well controlled. Patient is now weightbearing as tolerated. -Follow-up PT recommendations for safe discharge plan -Cleared to start DVT prophylaxis on 10/23/17, with eliquis -Continue adequate pain management -Plan for dressing change tomorrow -Continue to follow orthopedic recommendations #Chronic medical problems including HTN, HLD, alcoholism(in recovery) -Continue home medications Diet: heart healthy diet DVT prophylaxis: subcutaneous heparin, ALPS Code status: Full code Problem List: 1. Fall 2. Closed left hip fracture Pain Ratin Pain Location: L hip Pain Goal: Pain 4 or less Pain Plan: pain pathway Tomorrow's Labs & Rationales: jose l Avilez MD,Trina 10/23/17 1422: Attending MD Review Statement Attending Statement Attending MD Statement: examined this patient, discuss w/resident/PA/TREASURER, agreed w/resident/PA/TREASURER, reviewed EMR data (avail) Attending Assessment/Plan: 66M PMH HTN, HLD, chronic back pain with multiple surgeries, presents with slip and fall, landing on his left hip. Did not hit his head, shoulder, or lose consciousness. Was not able to walk afterward or bear weight on his left leg. No symptoms prior, fall was purely mechanical. Underwent successful repair on . Doing well today, pain controlled, able to work with PT. No other complaints. 1. Closed left hip fracture 2. Fall Plan - Continue on general medicine - Eliquis for DVT PPx - Pain control - Continue home medications
[2017-10-23 15:34] VITALS: BP 102/56
[2017-10-23 21:32] VITALS: BP 100/60
--- NOTE | 2017-10-24 06:48 | PN- Housestaff ---
Tom NINO,Michael 10/24/17 0647: Subjective Follow-up For: L femur fracture s/p hemiarthroplasty POD#2 Subjective: Patient was seen and examined at bedside. He was resting comfortably. He had no acute events overnight. He is tolerating a regular diet and was able to work with physical therapy yesterday. His pain is currently a 4/10 in the left hip. His pain increases with movement. He is tolerating a regular diet. Review of Systems Constitutional: Reports: no symptoms. EENTM: Reports: no symptoms. Cardiovascular: Reports: no symptoms. Respiratory: Reports: no symptoms. Gastrointestinal: Reports: no symptoms. Genitourinary: Reports: no symptoms. Musculoskeletal: Reports: see HPI, joint pain. Objective Last 24 Hrs of Vital Signs/I&O Vital Signs Date Time Temp Pulse Resp B/P B/P Pulse O2 O2 Flow FiO2 Mean Ox Delivery Rate 10/23 2132 98.1 111 18 100/60 93 10/23 1534 98.8 97 20 102/56 93 Room Air 10/23 0940 95 109/66 Intake & Output 10/24 0800 10/24 0000 10/23 1600 Intake Total 240 240 Output Total Balance 240 240 Intake, Oral 240 240 Physical Exam General Appearance: Alert, Oriented X3, Cooperative, No Acute Distress Skin Temp/Moisture Exam: Warm/Dry Sepsis Skin Exam (color): Normal for Ethnicity Cardiovascular: Regular Rate, Normal S1, Normal S2 Lungs: Clear to Auscultation, Normal Air Movement Abdomen: Normal Bowel Sounds, Soft, No Tenderness Neurological: Normal Speech, Sensation Intact, Cranial Nerves 3-12 NL Extremities: No Clubbing, No Cyanosis, No Edema, surgical site on the L lateral thigh is dressed, dressing is clean dry and intact, there is no sign of leakage or saturation the area is TTP, there is no ecchymosis or hematoma Current Medications: Current Medications Sig/Keeley Start time Last Medication Dose Route Stop Time Status Admin Acetaminophen 650 MG Q4P PRN 10/21 2230 AC 10/22 PO 0832 Apixaban 2.5 MG BID 10/23 2200 AC 10/23 PO 2100 Atorvastatin Calcium 20 MG 1700 10/22 1700 AC 10/23 PO 1622 Cefazolin Sodium 1,000 MG IQ8 10/23 0000 DC 10/23 IV 10/23 0801 0755 Dextrose/Sodium 1,000 ML Q10H 10/22 1944 DC 10/23 Chloride IV 0750 Influenza Virus 0.5 ML .STK-MED ONE 10/23 1142 DC Vaccine IM 10/23 1143 Lisinopril 10 MG DAILY 10/22 1000 AC 10/23 PO 0940 Morphine Sulfate 4 MG .STK-MED ONE 10/23 1423 DC IM 10/23 1424 Morphine Sulfate 2 MG Q2-3 HRS NEEDED.. 10/22 1944 AC 10/23 IV 1424 Oxycodone/ 2 TAB Q4P PRN 10/22 1944 AC 10/24 Acetaminophen PO 0533 Oxycodone/ 1 TAB Q4P PRN 10/22 1944 AC 10/23 Acetaminophen PO 2351 Last 24 Hrs of Lab/Dawood Results Last 24 Hrs of Labs/Mics: Laboratory Tests 10/23/17 0724: Anion Gap 10, Estimated GFR > 60, BUN/Creatinine Ratio 17.5, CBC w Diff NO MAN DIFF REQ, RBC 3.48 L, MCV 95.4 H, MCH 31.3 H, MCHC 32.8 L, RDW 13.2, MPV 8.5 , Gran % 77.0 H, Lymphocytes % 11.8 L, Monocytes % 11.0 H, Eosinophils % 0, Basophils % 0.2, Absolute Granulocytes 7.7 H, Absolute Lymphocytes 1.2, Absolute Monocytes 1.1 H, Absolute Eosinophils 0, Absolute Basophils 0 Assessment/Plan Assessment: Patient is a 66-year-old male with a PMH of HTN, HLD, spinal stenosis with chronic back pain, alcoholism who presented to the ED after a mechanical fall L hip pain. Associated symptoms suggestive of syncope. Patient found to have left femoral neck fracture. #Mildly displaced left femoral neck fracture Status post hemiarthroplasty POD #2. Pain is well controlled with oral pain regimen. He is tolerating a regular diet. Small increase in WBC, likely reactive -PT recommending home PT vs STR, follow up final recommendations -continue Eliquis -Continue adequate pain management -Continue to follow orthopedic recommendations - bowel regimen started #Chronic medical problems including HTN, HLD, alcoholism(in recovery) -Continue home medications Diet: heart healthy diet DVT prophylaxis: eliquis, ALPS Code status: Full code Problem List: 1. Closed left hip fracture 2. Fall Pain Ratin Pain Location: L hip Pain Goal: Remain pain free Pain Plan: pain pathawy Tomorrow's Labs & Rationales: jose l Avilez MD,Trina 10/24/17 1257: Attending MD Review Statement Attending Statement Attending MD Statement: examined this patient, discuss w/resident/PA/BREAKER BOSS, agreed w/resident/PA/BREAKER BOSS, reviewed EMR data (avail) Attending Assessment/Plan: 66M PMH HTN, HLD, chronic back pain with multiple surgeries, presents with slip and fall, landing on his left hip. Did not hit his head, shoulder, or lose consciousness. Was not able to walk afterward or bear weight on his left leg. No symptoms prior, fall was purely mechanical. Underwent successful repair on . Doing well today, pain controlled, able to work with PT. No other complaints. 1. Closed left hip fracture 2. Fall Plan - Continue on general medicine - Eliquis for DVT PPx - Pain control - Continue home medications
[2017-10-24 07:07] VITALS: BP 96/68
--- NOTE | 2017-10-24 08:41 | PN- Orthopedic ---
See Addendum Subjective Subjective: POD#2 S/P LEFT HIP HEMIARTHROPLASTY COMFOERTABLE THIS AM DENEIS CP, SOB, NO N+V WITH DIET AMBULATING WITH PT TOILETING WITHOUT DIFFICULTY Objective Vital Signs and I&Os Vital Signs Date Time Temp Pulse Resp B/P B/P Pulse O2 O2 Flow FiO2 Mean Ox Delivery Rate / 0832 101 96/68 / 0707 99.7 101 18 96/68 93 Room Air 10/23 2132 98.1 111 18 100/60 93 10/23 1534 98.8 97 20 102/56 93 Room Air 10/23 0940 95 109/66 Intake & Output / 1600 10/24 0800 10/24 0000 10/23 1600 10/23 0800 10/23 0000 Intake Total 240 760 616 9063 Output Total 250 1275 400 Balance -10 240 -475 730 Intake, IV 800 1100 Intake, Oral 240 240 30 Output, Urine 250 1275 400 Patient 194 lb 199 lb Weight Weight Bed scale Measurement Method Physical Exam: CV: RRR LUNGS: CLEAR ABD: SOFT, +BS EXT: NO COALF TENDERNESS BILAT DISTAL CMS INTACT Assessment/Plan Assessment/Plan ORTHO STABLE PLAN\ ELIQUIS FOR DVT PROPHYLAXIS CONT OOB WITH PT POSTERIOR HIP PRECAUTIONS WANT TO GO HOME NOT STR
[2017-10-24 09:03] LABS: ABSOLUTE BASOPHIL COUNT 0 /CUMM (0.0-0.2); ABSOLUTE EOSINOPHIL COUNT 0.1 /CUMM (0.0-0.7); ABSOLUTE LYMPH COUNT 1.3 /CUMM (1.2-3.4); ABSOLUTE MONOCYTE COUNT 1.5 /CUMM (0.10-0.60); BASOPHIL % 0.3 % (0.0-2.0); EOSINOPHIL % 0.9 % (0-5); GRANULOCYTE % 73.4 % (42.2-75.2); HEMATOCRIT 31.2 % (42-52); MEAN CORPUSCULAR HGB 32.1 PG (27.0-31.0); MEAN CORPUSCULAR HGB CONC 33.7 G/DL (33.0-37.0); MEAN CORPUSCULAR VOLUME 95.3 FL (80.0-94.0); MEAN PLATELET VOLUME 8.7 FL (7.4-10.4); PLATELET COUNT 184 /CUMM (130-400); RBC DISTRIBUTION WIDTH 13.5 % (11.5-14.5); RED BLOOD CELL CT 3.27 /CUMM (4.70-6.10); WHITE BLOOD CELL COUNT 10.9 /CUMM (4.8-10.8)
[2017-10-24 14:19] VITALS: BP 116/68
[2017-10-24] MEDS ORDERED: PERCOCET 5-3251 EACH PO (20:56)
[2017-10-24] MEDS ORDERED: DOCUSATE SODIU100 M3 PO (20:56)
[2017-10-24] MEDS ORDERED: ELIQUIS2.5 M1 PO (20:56)
[2017-10-24 21:15] VITALS: BP 100/63
[2017-10-25 05:52] VITALS: BP 112/72
--- NOTE | 2017-10-25 06:49 | PN- Orthopedic ---
See Addendum Subjective Subjective: POD#3 S/P LEFT HIP HEMIARTHROPLASTY NO MAJOR ISSUES OVERNIGHT DENEIS CP, SOB, NO n+V WITH DIET AMBULATING WELL WITH PT TOLERATING DIET Objective Vital Signs and I&Os Vital Signs Date Time Temp Pulse Resp B/P B/P Pulse O2 O2 Flow FiO2 Mean Ox Delivery Rate 10/25 0552 98.4 100 20 112/72 96 Room Air 10/24 2115 100.1 105 20 100/63 95 10/24 2112 100.3 10/24 1419 98.2 102 18 116/68 96 Room Air 10/24 0832 101 96/68 10/24 0707 99.7 101 18 96/68 93 Room Air Intake & Output 10/25 0800 10/25 0000 10/24 1600 10/24 0800 10/24 0000 10/23 1600 Intake Total 120 120 620 240 240 Output Total 375 275 400 250 Balance -255 -155 220 -10 240 Intake, Oral 120 120 620 240 240 Number 0 Bowel Movements Output, Urine 375 275 400 250 Patient 195 lb 194 lb Weight Physical Exam: CV: RRR LUNGS: CLEAR ABD: SOFT, +BS EXT: CALVES SOFT DRSG CHANGED, JWOUND C/D/I DISTAL CMS INTACT Assessment/Plan Assessment/Plan ORTHO STABLE PLAN CONT ELIQUIS FOR DVT PROPHYLAXIS OOB WITH PT, WBAT LEFT LE ORTHO STABLE FOR D/C PENDING PT CLEARANCE F/U DR HARRY
--- NOTE | 2017-10-25 07:06 | PN- Housestaff ---
Tom NINO,Michael 10/25/17 0705: Subjective Follow-up For: Left femur fracture status post hemiarthroplasty POD #2 Subjective: Patient was seen and examined at bedside. He is resting comfortably. He had no acute events overnight. He is currently complaining of mild soreness of his lower right-sided back. His left hip pain is improving, currently rates as a 3 4/10. He has no other complaints. Review of Systems Constitutional: Reports: no symptoms. EENTM: Reports: no symptoms. Cardiovascular: Reports: no symptoms. Respiratory: Reports: no symptoms. Gastrointestinal: Reports: no symptoms. Genitourinary: Reports: no symptoms. Musculoskeletal: Reports: see HPI, back pain, joint pain. Skin: Reports: no symptoms. Neurological/Psychological: Reports: no symptoms. Objective Last 24 Hrs of Vital Signs/I&O Vital Signs Date Time Temp Pulse Resp B/P B/P Pulse O2 O2 Flow FiO2 Mean Ox Delivery Rate 10/25 0552 98.4 100 20 112/72 96 Room Air 10/24 2114 100.1 105 20 100/63 95 10/25 2111 100.3 10/24 1419 98.2 102 18 116/68 96 Room Air 10/24 0832 101 96/68 10/24 0707 99.7 101 18 96/68 93 Room Air Intake & Output 10/25 0800 10/25 0000 10/24 1600 Intake Total 120 120 620 Output Total 375 275 400 Balance -255 -155 220 Intake, Oral 120 120 620 Number 0 Bowel Movements Output, Urine 375 275 400 Patient 195 lb Weight Physical Exam General Appearance: Alert, Oriented X3, Cooperative, No Acute Distress Skin Temp/Moisture Exam: Warm/Dry Sepsis Skin Exam (color): Normal for Ethnicity Cardiovascular: Regular Rate, Normal S1, Normal S2 Lungs: Clear to Auscultation, Normal Air Movement Abdomen: Normal Bowel Sounds, Soft, No Tenderness Neurological: Normal Speech, Normal Tone, Sensation Intact Extremities: L lateral thigh surgical wound is dressed, dressing is clean, dry and intact, TTP around the surgical site, with no hematoma or ecchymosis Current Medications: Current Medications Sig/Keeley Start time Last Medication Dose Route Stop Time Status Admin Acetaminophen 650 MG .STK-MED ONE 10/25 2111 DC PO 10/24 2112 Acetaminophen 650 MG Q4P PRN 10/21 2229 AC 10/24 PO 2111 Apixaban 2.5 MG BID 10/23 2199 AC 10/24 PO 2111 Atorvastatin Calcium 20 MG 1700 10/22 1700 AC 10/24 PO 1607 Docusate Sodium 100 MG DAILY 10/24 1000 AC 10/24 PO 1103 Lisinopril 10 MG DAILY 10/22 1000 AC 10/23 PO 0940 Morphine Sulfate 2 MG Q2-3 HRS NEEDED.. 10/22 IV 1424 Oxycodone/ 2 TAB Q4P PRN 10/22 1944 AC 10/25 Acetaminophen PO 0547 Oxycodone/ 1 TAB Q4P PRN 10/22 1944 AC 10/24 Acetaminophen PO 1608 Senna 187 MG AT BEDTIME 10/24 2199 AC 10/24 PO 2111 Last 24 Hrs of Lab/Dawood Results Last 24 Hrs of Labs/Mics: Laboratory Tests 10/24/17711: CBC w Diff NO MAN DIFF REQ, RBC 3.27 L, MCV 95.3 H, MCH 32.1 H, MCHC 33.7, RDW 13.5, MPV 8.7, Gran % 73.4, Lymphocytes % 11.9 L, Monocytes % 13.5 H, Eosinophils % 0.9, Basophils % 0.3, Absolute Granulocytes 8.0 H, Absolute Lymphocytes 1.3, Absolute Monocytes 1.5 H, Absolute Eosinophils 0.1, Absolute Basophils 0 Assessment/Plan Assessment: Patient is a 66-year-old male with a PMH of HTN, HLD, spinal stenosis with chronic back pain, alcoholism who presented to the ED after a mechanical fall L hip pain. Associated symptoms suggestive of syncope. Patient found to have left femoral neck fracture. #Mildly displaced left femoral neck fracture Status post hemiarthroplasty POD #3. Pain is well controlled with oral pain regimen. He is tolerating a regular diet. Small increase in WBC, likely reactive -Stable for discharge -PT recommending home with PT -continue Eliquis -Continue adequate pain management -Continue to follow orthopedic recommendations - bowel regimen started - will follow up with orthopic surgeon as an outpatient #Chronic medical problems including HTN, HLD, alcoholism (in recovery) -Continue home medications Diet: heart healthy diet DVT prophylaxis: GENTRY hall Code status: Full code Problem List: 1. Closed left hip fracture Pain Ratin Pain Location: L hip Pain Goal: Pain 4 or less Pain Plan: pain pathway Tomorrow's Labs & Rationales: none Discharge Plan Discharge Disposition: home Stable for Discharge? Yes Anticipated Discharge (Day): today If Discharged Today/In 24 Hrs: enter ant[facility] discharge ord, W-10/discharge paper done, CMR done Fatmata NINOErasmovahid 10/25/17 1518: Attending MD Review Statement Attending Statement Attending MD Statement: examined this patient, discuss w/resident/PA/GLOVE [employer]S C[employer]TER, agreed w/resident/PA/GLOVE [employer] CUTTER, reviewed EMR data (avail) Attending Assessment/Plan: 66M PMH HTN, HLD, chronic back pain with multiple surgeries, presents with slip and fall, landing on his left hip. Did not hit his head, shoulder, or lose consciousness. Was not able to walk afterward or bear weight on his left leg. No symptoms prior, fall was purely mechanical. Underwent successful repair on . Doing well today, pain controlled, able to work with PT. No other complaints. 1. Closed left hip fracture 2. Fall Plan - Discharge home today - Eliquis for DVT PPx - Pain control - Continue home medications
[2017-10-25 08:19] LABS: ABSOLUTE BASOPHIL COUNT 0 /CUMM (0.0-0.2); ABSOLUTE EOSINOPHIL COUNT 0.2 /CUMM (0.0-0.7); ABSOLUTE GRANULOCYTE CT 7.9 /CUMM (1.4-6.5); ABSOLUTE LYMPH COUNT 1.7 /CUMM (1.2-3.4); ABSOLUTE MONOCYTE COUNT 1.4 /CUMM (0.10-0.60); BASOPHIL % 0 % (0.0-2.0); EOSINOPHIL % 1.7 % (0-5); GRANULOCYTE % 70.2 % (42.2-75.2); HEMATOCRIT 29.5 % (42-52); MEAN CORPUSCULAR HGB 31.6 PG (27.0-31.0); MEAN CORPUSCULAR HGB CONC 33.5 G/DL (33.0-37.0); MEAN CORPUSCULAR VOLUME 94.2 FL (80.0-94.0); MEAN PLATELET VOLUME 8.4 FL (7.4-10.4); PLATELET COUNT 182 /CUMM (130-400); RBC DISTRIBUTION WIDTH 13.2 % (11.5-14.5); RED BLOOD CELL CT 3.13 /CUMM (4.70-6.10); WHITE BLOOD CELL COUNT 11.2 /CUMM (4.8-10.8)
--- NOTE | 2017-10-25 09:38 | Patient Discharge Instructions ---
Discharge Instructions General Discharge Information You were seen/treated for: L femur fracture You had these procedures: Hemiarthyoplasty of the L hip Special Instructions: Follow-up with your primary care physician within 24-48 hours of discharge. Follow-up with Dr. Keita, your surgeon, within 2 weeks of discharge. Take all medications as directed. If you should experience severe pain, skin discoloration numbness or tingling of your L leg, or chest pain, shortness of breath, lightheadedness or loss of consciousness call your doctor or return to the ER. Acute Coronary Syndrome Inclusion Criteria At DC or during hospital stay patient has or had the following: ACS DIAGNOSIS No Discharge Core Measures Meds if any: Prescribed or Continued at Discharge Meds if any: NOT Prescribed or Continued at Discharge Congestive Heart Failure Inclusion Criteria At DC or during hospital stay patient has or had the following: CHF DIAGNOSIS No Discharge Core Measures Meds if any: Prescribed or Continued at Discharge Meds if any: NOT Prescribed or Continued at Discharge Cerebrovascular accident Inclusion Criteria At DC or during hospital stay patient has or had the following: CVA/TIA Diagnosis No Discharge Core Measures Meds if any: Prescribed or Continued at Discharge Meds if any: NOT Prescribed or Continued at Discharge Venous thromboembolism Inclusion Criteria VTE Diagnosis No VTE Type NONE VTE Confirmed by (Test) NONE Discharge Core Measures - Per Current guidelines, there needs to be overlap - treatment for the first 5 days of Warfarin therapy. - If discharged on Warfarin prior to 5 days of - overlap therapy, the patient will need to be - assessed for post discharge needs including - *Post discharge parental anticoagulation - *Warfarin and/or parental anticoagulation education - *Follow up date to check INR post discharge At least 5 days overlap therapy as Inpatient No Meds if any: Prescribed or Continued at Discharge Note: Overlap Therapy is Warfarin and Anticoagulant Meds if any: NOT Prescribed or Continued at Discharge
[2017-10-25 10:23] VITALS: BP 112/62
[2017-10-25 13:59] VITALS: BP 109/67
[2017-10-25] MEDS ORDERED: DOCUSATE SODIU100 M3 PO (14:32)
[2017-10-25] MEDS ORDERED: PERCOCET 5-3251 EACH PO (14:32)
[2017-10-25] MEDS ORDERED: ELIQUIS2.5 M1 PO (14:32)
--- NOTE | 2017-10-25 20:22 | Event Note ---
See Addendum Event Note Event Note: S: alerted by the nurse that the patient/patient's were refusing discharge B: patient is medically cleared for discharge. Discussions were had with the patient about his anticipated DC home since his fist session with physical therapy, including that he would only need to clear stairs today when he left. I also spoke with the patient's leather case finisher today who informed me that she spoke to the patient's today about the plan for discharge. AR: I spoke with the patient and his at bedside. The claimed she has a broken toe, their driveway is icy and full of snow and that there is no safe way to get him into the house with his walker at this time. They are refusing discharge at this time as they feel it is not safe. They said that they would be able to have the driveway cleared in the morning and will be agreeable to discharge at that time. A discussion was had with both of them that the patient is medically cleared for discharge and has been evaluated to be safe for discharge home by PT. The discharge order was cancelled and it will be placed again in the morning.
[2017-10-25 22:02] VITALS: BP 110/67
[2017-10-26 06:27] VITALS: BP 118/71
--- NOTE | 2017-10-26 07:19 | PN- Housestaff ---
Subjective Follow-up For: L hip fracture s/p hemiarthroplasty Subjective: Patient was seen and examined at bedside. He was resting comfortably. He had no acute events overnight. He and his refused discharge yesterday as they believed that it was unsafe to send him home due to the conditions of their driveway/walkway, see event note for details. He has no new complaints and rates his L hip pain at 3/10. Review of Systems Constitutional: Reports: no symptoms. EENTM: Reports: no symptoms. Cardiovascular: Reports: no symptoms. Respiratory: Reports: no symptoms. Gastrointestinal: Reports: no symptoms. Genitourinary: Reports: no symptoms. Musculoskeletal: Reports: see HPI, joint pain. Skin: Reports: no symptoms. Objective Last 24 Hrs of Vital Signs/I&O Vital Signs Date Time Temp Pulse Resp B/P B/P Pulse O2 O2 Flow FiO2 Mean Ox Delivery Rate 10/26 626 99.4 113 20 118/71 94 Room Air 10/25 2202 99.3 109 18 110/67 95 Room Air 10/25 1359 98.9 110 20 109/67 96 Room Air 10/25 1023 100 112/62 Intake & Output 10/26 0800 10/26 0000 10/25 1600 Intake Total 240 600 600 Output Total 300 Balance 240 600 300 Intake, Oral 240 600 600 Number 0 Bowel Movements Output, Urine 300 Physical Exam General Appearance: Alert, Oriented X3, Cooperative, No Acute Distress Cardiovascular: Normal S1, Normal S2 Lungs: Clear to Auscultation, Normal Air Movement Abdomen: Normal Bowel Sounds, Soft, No Tenderness Current Medications: Current Medications Sig/Keeley Start time Last Medication Dose Route Stop Time Status Admin Acetaminophen 650 MG Q4P PRN 10/21 2229 AC 10/24 PO 2112 Apixaban 2.5 MG BID 10/23 2200 AC 10/25 PO 2133 Atorvastatin Calcium 20 MG 1700 10/22 1700 AC 10/25 PO 1822 Cyclobenzaprine HCl 5 MG ONCE ONE 10/25 1030 DC 10/25 PO 10/25 1031 1323 Docusate Sodium 100 MG DAILY 10/24 1000 AC 10/25 PO 1012 Lisinopril 10 MG DAILY 10/22 1000 AC 10/25 PO 1017 Morphine Sulfate 2 MG Q2-3 HRS NEEDED.. 10/22 194 AC 10/23 IV 1424 Oxycodone/ 2 TAB Q4P PRN 10/22 1944 AC 10/26 Acetaminophen PO 0553 Oxycodone/ 1 TAB Q4P PRN 10/22 1944 AC 10/24 Acetaminophen PO 1608 Patient Medication 1 ED ONE ONE 10/[address] [facility] ED 10/25 1416 Senna 187 MG AT BEDTIME 10/24 2199 AC 10/25 PO 2133 Last 24 Hrs of Lab/Dawood Results Last 24 Hrs of Labs/Mics: Laboratory Tests 10/25/17 0730: CBC w Diff NO MAN DIFF REQ, RBC 3.13 L, MCV 94.2 H, MCH 31.6 H, MCHC 33.5, RDW 13.2, MPV 8.4, Gran % 70.2, Lymphocytes % 15.6 L, Monocytes % 12.5 H, Eosinophils % 1.7, Basophils % 0, Absolute Granulocytes 7.9 H, Absolute Lymphocytes 1.7, Absolute Monocytes 1.4 H, Absolute Eosinophils 0.2, Absolute Basophils 0 Assessment/Plan Assessment: Patient is a 66-year-old male with a PMH of HTN, HLD, spinal stenosis with chronic back pain, alcoholism who presented to the ED after a mechanical fall L hip pain. Associated symptoms suggestive of syncope. Patient found to have left femoral neck fracture. #Mildly displaced left femoral neck fracture Status post hemiarthroplasty POD #4. Pain is well controlled with oral pain regimen. He is tolerating a regular diet. Small increase in WBC, likely reactive -remains satble for discharge -PT recommending home with PT -continue Eliquis -Continue adequate pain management -Continue to follow orthopedic recommendations -continue bowel regimen - will follow up with orthopic surgeon as an outpatient #Chronic medical problems including HTN, HLD, alcoholism (in recovery) -Continue home medications Diet: heart healthy diet DVT prophylaxis: GENTRY hall Code status: Full code Problem List: 1. Closed left hip fracture Pain Ratin Pain Location: L hip fracture Pain Goal: Pain 4 or less Pain Plan: pain pathway Tomorrow's Labs & Rationales: none Discharge Plan Discharge Disposition: home Stable for Discharge? Yes Anticipated Discharge (Day): today If Discharged Today/In 24 Hrs: enter antc discharge ord, W-10/discharge paper done, CMR done
[2017-10-26 08:21] VITALS: BP 118/71
== END 2017-10-26 10:22 | disposition home health service (06) | DRG 470 ==
LOC: ERH 12:01 → 2NB 16:14 → ERHI 16:14 → ENRESERV 17:36 → ENTRNSPT 17:38 → 2NB 18:06 → CMPTRNSPT 18:23 → ENTRNSPT 10-22 20:08 → EDTRNSPTSTS 10-22 20:15 → CMPTRNSPT 10-22 20:40 → 2NB 10-23 08:40 → ENPENDDIS 10-25 14:42 → EDPENDDISTM 10-26 09:36 → EDPENDDISDT 10-26 09:36 → ENTRNSPT 10-26 10:10 → EDTRNSPT 10-26 10:16 → EDTRNSPTSTS 10-26 10:16 → 2NB 10-26 10:22 → CMPTRNSPT 10-26 10:36
PROVIDERS: Dermatology; Internal Medicine; Student in an Organized Health Care Education/Training Program
PROC: 0SRS01Z Replacement of Left Hip Joint, Femoral Surface with Metal Synthetic Substitute, Open Approach (ICD-10-PCS; principal; 2017-10-22)
DX: S72.002A Fracture of unspecified part of neck of left femur, initial encounter for closed fracture (principal); E78.5 Hyperlipidemia, unspecified; I10 Essential (primary) hypertension; M48.00 Spinal stenosis, site unspecified; M54.9 Dorsalgia, unspecified; F10.20 Alcohol dependence, uncomplicated; W00.0XXA Fall on same level due to ice and snow, initial encounter
CPT/HCPCS: 2NBSP; 2NSBP; 36415; 36592; 73501; 73502-LT; 82436; 93005; 93010; 96374; 96376; 97110-GO; 97116-GO; 97161-GP; 97530-GO; C1713; C9399; J0131; J0690; J1644; J1885; J2270; J7042; Q2036